=== PATIENT | male | born 1980 | race Caucasian/White ===

== ENCOUNTER 2020-12-23 14:09 | Outpatient (CLI) | payer BC | END 2020-12-23 23:59 | disposition home or self-care (01) | LOC: RAD 14:09 | PROVIDERS: ATTEND Family Medicine | DX: I86.1 Scrotal varices (principal); N45.1 Epididymitis; N43.3 Hydrocele, unspecified; N50.812 Left testicular pain | CPT/HCPCS: 76870 ==